=== PATIENT | female | born 1995 | race American Indian/Alaskan Native ===

== ENCOUNTER 2019-07-19 11:12 | Inpatient (IN) | payer MEDICAID ==
[2019-07-19] MEDS ORDERED: LACTATED RINGERS 2,000 ML ONE (11:16)
[2019-07-19] MEDS: LACTATED RINGERS 1,000 ML IV SCH ×2 (11:20→23:17)
[2019-07-19] MEDS ORDERED: PITOCin/NS 20 UNIT/1000ML DRIP 20,000 MILLIUNITS/1,000 ML BAG IV ONE (11:27)
[2019-07-19] MEDS ORDERED: BICITRA ONE (11:28)
[2019-07-19] MEDS ORDERED: PEPCID IV ONE ×3 (11:28→11:32)
[2019-07-19] MEDS ORDERED: REGLAN ONE (11:28)
[2019-07-19] MEDS ORDERED: BICITRA PO ONE ×2 (11:32)
[2019-07-19] MEDS ORDERED: REGLAN IV ONE ×2 (11:32)
[2019-07-19 11:36] LABS: Hemoglobin 14.3 gm/dl (10.1-14.3); Mean Corpuscular HGB Conc 33 % (30-34); Mean Corpuscular Volume 89 fl (79-97); Platelet Count 189 K/mm3 (140-440); Red Blood Count 4.83 M/mm3 (3.65-5.03); Red Cell Distribution Width 13.9 % (13.2-15.2)
--- NOTE | 2019-07-19 11:38 | History and Physical Report ---
History of Present Illness Date of examination: 07/19/19 Date of admission: 07/19/19 11:12 Chief complaint: SIUP at 38 weeks and 5 days gestation in active labor with SROM. Breech presentation. History of present illness: Patient is a 23 year old , LMP 10/31/18, EDC 07/28/19 at 38 weeks and 5 days gestation who presented to the triage complaining of having contractions and clear fluid leakage per vagina since about 30 mins ago. The baby has been in a breech presentation. She reports good movement. tracing is CAT 1. Cervix:7 cm/90%/-1 to 0. Past History Past Surgical History: no surgical history Family/Genetic History: none Social history: no significant social history - Obstetrical History Expected Date of Delivery: 07/28/19 Actual Gestation: 38 Week(s) 5 Day(s) : 1 Medications and Allergies Allergies Allergy/AdvReac Type Severity Reaction Status Date / Time No Known Allergies Allergy Verified 07/19/19 11:24 - Physical Exam Cardiovascular: Normal S1, Normal S2 Lungs: Positive: Clear to auscultation Vulva: both: normal Adnexa: both: normal Deep Tendon Reflex Grade: Normal +2 - Obstetrical FHR: category 1 Uterine Contraction Monitor Mode: External Cervical Dilatation: 7 Cervical Effacement Percentage: 90 station: -1 Uterine Contraction Pattern: Regular Uterine Contraction Intensity: Strong/Firm Results Result Diagrams: 07/19/19 11:00 All other labs normal. Assessment and Plan - Patient Problems (1) 38 weeks gestation of Current Visit: Yes Status: Acute (2) Active labor Current Visit: Yes Status: Acute (3) Breech presentation Current Visit: Yes Status: Acute Plan to address problem: Admit to labor floor. Routine preop labs. IV hydration. Keep NPO. monitoring. Patient was counselled for primary C/section. Risks, benefits, and alternatives of the procedure were discussed in detail with the patient which included but not limited to the risk of infection, hemorrhage requiring blood transfusion, injury to the bowel or bladder and blood vessels. The patient expressed understanding, her questions were answered, and she gave informed consent. Anesthesia notified.
[2019-07-19] MEDS ORDERED: WATER FOR IRRIG STERILE IR ONE (11:40)
[2019-07-19] MEDS ORDERED: NACL 0.9% IR ONE (11:40)
[2019-07-19] MEDS ORDERED: ANCEF/STERILE WATER 2 GM/20 ML 2 GM/20 ML SYRINGE IV NR (12:00)
[2019-07-19] MEDS ORDERED: ZOFRAN ONE (12:00)
[2019-07-19] MEDS ORDERED: LACTATED RINGERS 1,000 ML IV SCH (12:00)
[2019-07-19] MEDS ORDERED: PITOCin/NS 20 UNIT/1000ML DRIP 20 UNITS/1,000 ML BAG IV SCH ×2 (12:00→13:00)
[2019-07-19] MEDS ORDERED: TORADOL ONE (12:04)
[2019-07-19] MEDS ORDERED: BENADRYL ONE (12:04)
[2019-07-19] MEDS ORDERED: ANCEF ONE (12:05)
[2019-07-19] MEDS ORDERED: DEXMEDETOMIDINE IV ONE (12:06)
[2019-07-19] MEDS ORDERED: DILAUDID ONE (12:30)
[2019-07-19] MEDS ORDERED: TYLENOL PO PRN (12:51)
[2019-07-19] MEDS ORDERED: TUCKS PAD TP PRN (12:51)
[2019-07-19] MEDS ORDERED: MORPHINE IV PRN ×2 (12:51)
[2019-07-19] MEDS ORDERED: NARCAN 0.4 MG/1 ML IV PRN ×2 (12:51→13:05)
[2019-07-19] MEDS ORDERED: PHENERGAN PR PRN ×2 (12:51→13:05)
[2019-07-19] MEDS ORDERED: ZOFRAN IV PRN ×2 (12:51→13:05)
[2019-07-19] MEDS ORDERED: ANUCORT-HC PR PRN (12:51)
[2019-07-19] MEDS ORDERED: LANSINOH TP PRN (12:51)
[2019-07-19] MEDS ORDERED: MILK OF MAGNESIA PO PRN (12:51)
[2019-07-19] MEDS ORDERED: TORADOL IV PRN (12:51)
[2019-07-19] MEDS ORDERED: MYLICON PO PRN (12:51)
[2019-07-19] MEDS ORDERED: SODIUM CHLORIDE FLUSH SYRINGE 10 ML IV NR ×2 (13:00→14:00)
--- NOTE | 2019-07-19 13:00 | Operative Report ---
Operative Report Operative Report: Preoperative diagnosis 1. SIUP at 38 weeks and 5 days gestation in active labor. 2. Breech presentation. Postoperative diagnosis: Same. Procedure: Emergency Primary low-transverse section. Surgeon: Dr. Flores Trim Machine Adjuster: none Anesthesia: epidural. IVF: RL 1200 cc EBL: 300 cc Urine: 50 cc clear Complications: none. Intraoperative findings: 1. A female found in a tyler breech presentation, delivered at 11:51 AM, Apgars 8 at 1 minute and 9 at 5 minutes, weight 6 lbs. 2. Normal fallopian tubes and ovaries bilaterally. Procedure details: Risks, benefits, and alternatives of the procedure were discussed in detail with the patient which included but not limited to the risk of infection, hemorrhage requiring blood transfusion, injury to the bowel or bladder and blood vessels. The patient expressed understanding, her questions were answered, and she gave informed consent. The patient was taken to the operating room with an IV fluid infusing Ringers lactate. In the operating room, she was placed in a sitting position and given spinal anesthesia. She was then placed in a dorsal supine position with a leftward tilt. Patino catheter in Venodyne boots were placed. The abdomen was washed and she was prepared and draped in usual sterile fashion. After confirming adequate anesthesia, the Pfannenstiel skin incision was made in the lower abdomen about 2 cm above the pubic symphysis using the scalpel. This incision was carried down to the underlying fascia using the Bovie. The fascia was opened bilaterally in a curvilinear fashion using the Bovie. 2 straight Kocker clamps were used to grasp the upper edge of the fascia from which the underlying rectus abdominis muscles was dissected off using the Bovie. A similar procedure was done with the lower edge of the fascia to dissect the underlying rectus abdominis muscle. The muscle was bluntly from the midline by pulling. The parietal peritoneum was grasped with 2 hemostat clamps and entered sharply using Metzenbaum scissors. A quick survey of the anatomy revealed a gravid uterus, normal fallopian tubes and ovaries bilaterally. A bladder flap was created. Jorge Luis'O retractor was placed in the incision for proper visualization. A low transverse incision was made in the lower uterine segment using the scalpel and extended bilaterally in a curvilinear fashion using bandage scissors. There was scant amount of clear amniotic fluids. The was found in an tyler breech presentation. The was delivered up to the thorax, the anterior shoulder was delivered, the body was rotated 180 degree to bring the posterior shoulder to an anterior position from where it was delivered. The head was flexed and delivered atraumatically at 11:51 AM. The cord was clamped 2 and cut and the was handed off to the waiting chalk cutter. The infant was a female, Apgars were 8 at 1 minute and 9 at 5 minutes, weight was 6 pounds. Cord blood was collected. The placenta was delivered manually and it was complete with a three-vessel cord. The uterine cavity was cleaned of clots and debris using dry lap sponges. The uterine incision was repaired in a running locked fashion using 0 Vicryl sutures. A second layer of imbrication was placed. The gutters were cleaned of clots and debris using dry lap sponges. After confirming adequate hemostasis, the instruments were removed from the abdominal cavity. The rectus muscle was reapproximated in an interrupted fashion using 0 Vicryl sutures. The fascia was closed in a running fashion using 0 Vicryl sutures. The subcutaneous adipose layer was closed with 2.0 chromic sutures. The skin was closed in a subcutaneous fashion with 4 vicryl on a Terrance needle. Sterile dressing was placed. Due to the procedure being an emergency C/section, instruments and laps counts were not done done prior to starting the case. X-ray was done at the end of procedure which confirmed that no foreign body was left inside the abdomen. The counts of laps, needles, sponges, and instruments were correct 2. The patient tolerated the procedure well, she was taken to the recovery room in a stable condition.
--- NOTE | 2019-07-19 13:04 | Anesthesia Consultation ---
Anesthesia Consult and Med Hx Date of service: 07/19/19 - Airway Anesthetic Teeth Evaluation: Good ROM Head & Neck: Adequate Mental/Hyoid Distance: Adequate Mallampati Class: Class II Intubation Access Assessment: Good - Pulmonary Exam CTA: Yes - Cardiac Exam Cardiac Exam: RRR - Pre-Operative Health Status ASA Pre-Surgery Classification: ASA2, Emergency Proposed Anesthetic Plan: Spinal - Pulmonary Hx Smoking: No Hx Asthma: No - Cardiovascular System Hx Hypertension: No - Central Nervous System Hx Neuromuscular Disorder: No - Endocrine Hx Renal Disease: No - Hematic Hx Anemia: No Hx Sickle Cell Disease: No
[2019-07-19] MEDS ORDERED: DILAUDID IV PRN ×2 (13:05)
[2019-07-19] MEDS ORDERED: PHENERGAN PO PRN (13:05)
--- NOTE | 2019-07-19 13:05 | Post Anesthesia Evaluation ---
- Post Anesthesia Evaluation Patient Participated: Yes Airway Patent: Yes Stable Respiratory Function: Yes Nausea/Vomiting: No Temp > 96.8F: Yes Pain Manageable: Yes Adequeate Hydration: Yes Anesthesia Complications: No Block Receding Appropriately: Yes Patient on Ventilator: No
--- NOTE | 2019-07-19 13:05 | Anesthesia Day of Surgery ---
Anesthesia Day of Surgery - Day of Surgery Patient Examined: Yes Patient H&P Reviewed: Yes Patient is NPO: No
[2019-07-19 13:35] LABS: Basophils % (Auto) 0.3 % (0.0-1.8); Hematocrit 34.5 % (30.3-42.9); Hemoglobin 11.5 gm/dl (10.1-14.3); Lymphocytes # (Auto) 1.4 K/mm3 (1.2-5.4); Lymphocytes % (Auto) 11.7 % (13.4-35.0); Mean Corpuscular HGB Conc 33 % (30-34); Mean Corpuscular Volume 88 fl (79-97); Monocytes # (Auto) 0.8 K/mm3 (0.0-0.8); Monocytes % (Auto) 6.4 % (0.0-7.3); Platelet Count 151 K/mm3 (140-440); Red Blood Count 3.91 M/mm3 (3.65-5.03); Red Cell Distribution Width 13.7 % (13.2-15.2)
--- NOTE | 2019-07-19 14:17 | XRay Report ---
AP portable pelvis in the OR INDICATION: Evaluate for foreign body FINDINGS: There is no instrument or foreign body seen. Signer Name: Moose Pandey MD Signed: 07/19/2019 2:12 PM Workstation Name: [id number]
[2019-07-19] MEDS: TORADOL IV PRN ×2 (16:39→21:53)
[2019-07-19] MEDS: PERCOCET 5/325 PO PRN (20:03)
[2019-07-19] MEDS ORDERED: SENOKOT PO PRN (22:00)
[2019-07-20 01:25] LABS: Hemoglobin 11.6 gm/dl (10.1-14.3)
[2019-07-20] MEDS: PERCOCET 5/325 PO PRN ×3 (01:48→22:40)
[2019-07-20] MEDS: TORADOL IV PRN (05:10)
[2019-07-20] MEDS: PRENATAL VITAMIN PO SCH (10:13)
[2019-07-20] MEDS: FEOSOL PO SCH (10:13)
[2019-07-20] MEDS: IBUPROFEN PO PRN ×2 (11:12→18:40)
--- NOTE | 2019-07-20 12:05 | Progress Note ---
Assessment and Plan A: POD #1 Stable P: Follow Routine PostOp Orders Advance Diet Subjective - Subjective Date of service: 07/20/19 Patient reports: appetite normal, voiding normally, pain well controlled, flatus, ambulating normally Crosby: doing well Objective - Vital Signs Latest vital signs: Vital Signs Temp Pulse Resp BP BP Pulse Ox 07/20/19 08:10 98.2 F 67 20 88/50 07/20/19 05:33 98.2 F 80 16 111/80 98 07/20/19 00:36 99.2 F 73 18 115/64 98 07/19/19 20:30 98.4 F 88 18 121/79 100 07/19/19 18:40 98 F 81 18 108/69 07/19/19 14:35 97.9 F 110 H 18 126/71 98 07/19/19 13:55 97.6 F 86 18 114/75 100 07/19/19 13:40 76 14 115/70 100 07/19/19 13:25 77 14 112/65 100 07/19/19 13:10 83 13 116/66 100 07/19/19 13:05 75 19 114/65 100 07/19/19 13:00 97.8 F 73 15 110/61 100 07/19/19 12:53 86 186/125 07/19/19 12:48 85 199/127 07/19/19 12:37 90 200/128 Intake and Output 07/19/19 07/20/19 07/20/19 22:59 06:59 14:59 Intake Total 240 740 240 Output Total 800 1500 Balance -560 -760 240 Intake: Oral 240 Intake, Free Water 240 740 Output: Urine 800 1500 Indwelling Catheter 800 700 Void 800 Other: Total, Intake Amount 240 Total, Output Amount 800 800 # Voids Void 700 - Exam Breasts: Present: normal Cardiovascular: Present: Regular rate Lungs: Present: Clear to auscultation, Normal air movement Abdomen: Present: normal appearance, soft, normal bowel sounds Uterus: Present: normal, firm, fundal height below umbilicus Extremities: Present: normal Incision: Present: normal, dry, dressed - Labs Labs: Abnormal lab results 07/19/19 Range/Units 13:04 WBC 12.1 H (4.5-11.0) K/mm3 Lymph % (Auto) 11.7 L (13.4-35.0) % Seg Neutrophils % 81.6 H (40.0-70.0) % Seg Neutrophils # 9.9 H (1.8-7.7) K/mm3
[2019-07-21] MEDS: PERCOCET 5/325 PO PRN ×2 (04:20→14:10)
[2019-07-21] MEDS: IBUPROFEN PO PRN (04:22)
[2019-07-21] MEDS: PRENATAL VITAMIN PO SCH (11:16)
[2019-07-21] MEDS: FEOSOL PO SCH (11:16)
--- NOTE | 2019-07-21 11:29 | Progress Note ---
Assessment and Plan A: POD#2 s/p Primary c/s Stable P: Routine PO/PP care Discharge home today Subjective - Subjective Date of service: 07/21/19 Principal diagnosis: POD#2 s/p Primary c/s for breech presentation Interval history: See H&P and delivery note Patient reports: appetite normal, voiding normally, pain well controlled, ambulating normally : doing well Objective - Vital Signs Latest vital signs: Vital Signs Temp Pulse Resp BP BP Pulse Ox 07/21/19 07:50 98.1 F 66 18 105/60 97 07/21/19 00:50 97.9 F 65 20 101/60 99 07/20/19 16:35 98.2 F 71 20 81/46 Intake and Output 07/20/19 07/21/19 07/21/19 23:59 07:59 15:59 Intake Total 440 480 Balance 440 480 Intake: Oral 440 Intake, Free Water 480 Other: Total, Intake Amount 120 # Voids Void 1 2 - Exam Breasts: Present: normal Cardiovascular: Present: Regular rate, Normal S1, Normal S2, No murmurs Lungs: Present: Clear to auscultation, Normal air movement Abdomen: Present: normal appearance, soft, tenderness (as expected post-op), normal bowel sounds. Absent: distention Vulva: both: normal Uterus: Present: firm, fundal height at umbilicus Extremities: Present: normal Deep Tendon Reflex Grade: Normal +2 Incision: Present: normal (LTI, CDI, No drainage), dry, intact
--- NOTE | 2019-07-21 11:30 | Discharge Summary ---
Providers - Providers Date of Admission: 07/19/19 11:12 Date of discharge: 07/21/19 Attending physician: DEMETRIUS FRENCH MD Primary care physician: DEMETRIUS FRENCH MD Hospitalization Reason for admission: active labor, IUP at term Delivery: (Breech presentation) Procedure: primary low transverse Procedure details: See H&P Incision: normal, dry, intact Other procedures: none complications: none Discharge diagnosis: IUP at term delivered Condition at discharge: Good Disposition: DC-01 TO HOME OR SELFCARE Plan - Provider Discharge Summary Activity: routine, no sex for 6 weeks, no heavy lifting 4 weeks, no strenuous exercise Diet: routine Instructions: routine Additional instructions: [] Smoking cessation referral if applicable(refer to patient education folder for contact #) [] Refer to [facility] Booklet Call your doctor immediately for: * Fever > 100.5 * Heavy vaginal bleeding ( >1 pad per hour) * Severe persistent headache * Shortness of breath * Reddened, hot, painful area to leg or breast * Drainage or odor from incision. * Keep incision clean and dry at all times and follow doctor's instructions regarding bathing/showering - Follow up plan Follow up: DEMETRIUS FRENCH MD [Primary Care Provider] - 7 Days
[2019-07-21 17:00] VITALS: BP 117/82
== END 2019-07-21 20:32 | disposition home or self-care (01) | DRG 766 ==
LOC: APU 11:12 → OB 14:59
PROVIDERS: ADMIT Obstetrics & Gynecology; ATTEND Obstetrics & Gynecology
PROC: 10D00Z1 Extraction of Products of Conception, Low, Open Approach (ICD-10-PCS; principal; 2019-07-19)
DX: O32.1XX0 Maternal care for breech presentation, not applicable or unspecified (principal); Z3A.38 38 weeks gestation of pregnancy; Z37.0 Single live birth
CPT/HCPCS: 36415; 72170; 85014; 85018; 85025; 85027; 86592; 86850; 86900; 86901; G0378; J0690; J1170; J1200; J1885; J2405; J2590; J2765; J3490; J7120